=== PATIENT | female | born 2000 | race Caucasian/White ===

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

== ENCOUNTER 2023-09-21 20:13 | Emergency (ER) | payer SELFPAY ==
[2023-09-21 20:14] VITALS: BP 138/91; PULSE 121; RESP 20; TEMP 36.4; O2SAT 99; BMI 41.3
[2023-09-21 21:32] VITALS: BP 119/64; PULSE 102; RESP 16; TEMP 38.5; O2SAT 97
[2023-09-21 21:36] VITALS: O2SAT 97
[2023-09-21] MEDS: Acetaminophen 500 MG Tablet 1000 MG PO (21:50)
--- NOTE | 2023-09-21 21:58 | EDS_ITS ---
HPI History of Present Illness Chief Complaint: Dental PFSH PFSH Allergy/AdvReac Type Severity Reaction Status Date / Time No Known Allergies Allergy Verified 09/21/23 20:13 Social History (System 09/05/21 @ 14:49 by Aracelis Rico) Smoking Status: Never smoker EXAM Physical Exam Const Vital Signs: 09/21/23 20:14 09/21/23 21:32 09/21/23 21:36 Temperature 97.5 F L 101.3 F H Temperature Source Temporal Oral Pulse Rate 121 H 102 H Respiratory Rate 20 H 16 Respiratory Effort Normal Non-Labored Respiratory Depth Normal Respiratory Pattern Normal Blood Pressure 138/91 H 119/64 Blood Pressure Mean 106 82 Pulse Ox 99 97 Oxygen Delivery Method Room Air Room Air Room Air 09/21/23 22:32 Temperature 100.3 F H Temperature Source Oral Pulse Rate 100 Respiratory Rate 16 Respiratory Effort Respiratory Depth Respiratory Pattern Blood Pressure 129/77 H Blood Pressure Mean 94 Pulse Ox 98 Oxygen Delivery Method Room Air MDM MDM MDM Narrative Medical decision making narrative: HISTORY OF PRESENT ILLNESS: 23-year-old female presents with concern for dental pain, headache and shortness of breath. Patient denies sudden onset or thunderclap headache, denies maximal intensity within 1 minute, vomiting, neck pain, stiffness, changes in vision, fever, history malignancy, syncope, or seizures associated with headache. The patient denies recent surgery in the last 4 weeks or immobilization in the last 3 days, denies previous diagnosis of DVT or PE, hemoptysis, unilateral leg swelling or malignancy with treatment the last 6 months or palliative. No estrogen use noted. REVIEW OF SYSTEMS: Pertinent positives: Dental pain, headache, shortness of Pertinent negatives: Focal weakness, syncope, loss of vision PHYSICAL EXAM: Nursing triage notes reviewed, Vital signs reviewed Constitutional: please see mdm HENT: MMM Eyes: Pupils equal round and reactive to light, Extraocular muscles intact Neck: No stridor, no JVD, full neck ROM Lungs: Clear to auscultation, No wheezing or rales. No increased work of breathing, no conversational dyspnea, no accessory muscle use, no nasal flaring. No respiratory distress noted Heart: Regular rate and rhythm, No murmurs, No rubs and No gallops, 2+ distal pulses (radial, femoral, posterior tibial) in all extremities Abdomen: Soft, there is no tenderness, rigidity, rebound or guarding, no obvious peritoneal signs, no palpable pulsatile abdominal masses, no auscultated abdominal bruit : No CVAT Extremities: No edema Neuro: Alert and oriented x3, neuro exam at baseline, cranial nerves II through XII are intact. No pain with extraocular muscle movement. There is negative test of skew. 5 of 5 strength in upper and lower extremities in flexion extension. Intact sensation to light touch in upper and lower extremity dermatomes. No truncal or extremity ataxia. No dysdiadochokinesia. Normal gait. 2+ reflexes in upper and lower extremities. No meningeal signs. Negative Babinski. NIH of 0. Skin: No rash or lesions noted MEDICAL DECISION MAKING: Chief Complaint: Dental pain, shortness of breath, headache External records reviewed: No recent ED visits MDM Narrative: Patient was hemodynamically stable, initially febrile, nontoxic-appearing. Exam without focal neurologic deficits. No meningeal signs. I considered the following differential diagnosis: COVID, flu, RSV, pneumonia, ICH, cervical hemorrhage, meningitis ALL IMAGES (IF OBTAINED) HAVE BEEN PERSONALLY REVIEWED AND INTERPRETED BY MYSELF. COVID-positive Will likely etiology patient complaints COVID-19. She is low risk for severe disease or hospitalization no indication for Paxlovid at this time The patient and/or family, caregivers express understanding. The patient and/or family, caregivers agrees with the plan. Shared decision making: I will have a discussion with the patient and or visitors regarding risk/benefits of further testing or admission. They will be made aware of of the risk/benefits inherent in this decision they will be given the opportunity to voice understanding. Total critical care time today provided was at least 0 minutes. This excludes separately billable procedures. Critical care time (if documented) is secondary to the patient having high probability of clinically significant/life threatening deterioration in the patient's condition which required my urgent intervention. Impression: 1. Viral URI 2. Tachycardia 3. Fever Dispo: Discharge Discharge Plan Triage Chief Complaint: Dental Other Complaint: Headache Shortness of Breath ED Provider: Juan Alberto Arias Dx/Rx/DC Orders Instructions: How COVID-19 Spreads, Coronavirus Disease 2019 (COVID-19): Overview Stand Alone Forms: ED Work / School Excuse Primary Care Provider: Care Physician,No Primary Referrals: Dmitry Gary MD [Med Staff - [employer] Super[employer]] - Disposition Disposition: Home, Self Care Capacity Legal Digital Music Instructor Reflex Medical hold order details:: IF a medical hold is selected below, a suggested order for a MEDICAL HOLD will reflex upon signing the document. Next of kin: [place] law dictates a PRIORITY LIST for identifying legal decision-maker/legal next of kin in the following order (LNOK): 1st: The patient?s legal guardian, if any 2nd: The patient's spouse (if status is questionable, consult Risk Management) 3rd: The patient?s adult child(indy) (majority, if multiple children) 4th: The patient?s parents 5th: The patient?s adult siblings (majority, if multiple children siblings)
--- OUTSIDE RECORDS SUMMARY | 2023-09-21 22:23 | XMS RPT_ITS | CCD ---
Author Name Unknown Address [address] [place] [address] [id number] [place] [address] Organization [facility] Care Team Providers Care Progressive Assembler And Fitter Name Role Phone PHYSICIAN, NONE Primary Care Physician Unavailab Minesh Lai MD Primary Care Provider VANCE BUSCH Attending Unavailable MINESH KELLER Primary Care Unavailable Medications Current Medications Medication Drug Class(es) Dates Sig (Normalized) Sig (Original) amoxicillin 500 mg oral capsule (1 source) Penicillin-class Antibacterial Start: 07-25-2021 End: 08-01-2021 amoxicillin 500 mg oral capsule Dose : 500 mg = 1 cap(s), Oral, BID, X 7 day(s), # 14 cap(s), 0 Refill(s), 08/01/21 17:39:00 EST Start Date: 07/25/21 Stop Date: 08/01/21 Status: Ordered etonogestrel 68 mg drug implant (2 sources) Progestin Start: 05-18-2020 End: 05-18-2023 etonogestrel (NEXPLANON) subdermal implant 68 mg Indications: Insertion of implantable subdermal contraceptive 1 Each by SUBDERMAL route as directed. 1 Each 0 05/18/2020 05/18/2023 Active Completed/Discontinued Medications Medication Drug Class(es) Dates Sig (Normalized) Sig (Original) famotidine 40 mg oral tablet (2 sources) Histamine-2 Receptor Antagonist Start: 03-27-2021 End: 04-10-2021 Pepcid 40 mg oral tablet Dose : 40 mg = 1 tab(s), Oral, BID, # 28 tab(s), 0 Refill(s) Start Date: 03/27/21 Stop Date: 04/10/21 Status: Ordered naproxen 500 mg oral tablet (1 source) Nonsteroidal Anti-inflammatory Drug Start: 03-26-2021 take 1 tablet by mouth every twelve hours as needed naproxen (NAPROSYN) 500 mg tablet Take 1 tablet by mouth twice daily as needed (for pain/inflammation ). Take with food. 14 tablet 0 03/26/2021 Active Problems Active Problems Problem Classification Problem Date Documented Da te Episodic/Chronic Anxiety disorders (2 sources) Mixed anxiety and depressive disorder 09-25-2019 Chronic Calculus of urinary tract (2 sources) History of calculus of kidney 09-25-2019 Episodic Miscellaneous mental health disorders (1 source) Chronic insomnia; Translations: [Psychophysiologi c insomnia] Onset: 05-02-2021 05-02-2021 Chronic Mood disorders (1 source) Recurrent major depressive episodes, mild ; Translations: [Major depressive disorder, recurrent, mild] Onset: 05-02-2021 05-02-2021 Chronic Other gastrointestinal disorders (2 sources) Irritable bowel syndrome 09-25-2019 Chronic Other nutritional; endocrine; and metabolic disorders (1 source) Obesity; Translations: [Other obesity due to excess calories] Onset: 05-02-2021 05-02-2021 Chronic Other upper respiratory infections (1 source) Acute pharyngitis; Translations: [Acute pharyngitis, unspecified] Onset: 07-25-2021 Episodic Viral infection (1 source) Viral disease; Translations: [Other viral agents as the cause of diseases classified elsewhere] Onset: 03-14-2022 Episodic Past or Other Problems Problem Classification Problem Date Documented Da te Episodic/Chronic Other non-traumatic joint disorders (1 source) Hip pain; Translations: [Pain in right hip] Onset: 05-02-2021 05-02-2021 Episodic Unclassified (1 source) Exposure to 2019 novel coronavirus; Translations: [Contact with and (suspected) exposure to COVID19] Onset: 07-25-2021 Results Test Name Value Interpretation Reference Range Facil ity Vital Signs Date Time Vital Sign Value Performing Clinician Faci delvis 03-14-2022 14:29-0400 Body temperature 98.42 [degF] GASTON GILMAN MD [facility] 03-14-2022 14:29-0400 Diastolic blood pressure 70 mm[Hg] GASTON LYREN-SONDLES MD [facility] 03-14-2022 14:29-0400 Heart rate 104 /min GASTON GILMAN MD [facility] 03-14-2022 14:29-0400 Respiratory rate 16 /min GASTON GILMAN MD [facility] 03-14-2022 14:29-0400 Systolic blood pressure 117 mm[Hg] GASTON GILMAN MD [facility] 07-25-2021 17:29-0500 Body temperature 98.96 [degF] DR MAURISIO BECERRA MD [facility] 07-25-2021 17:29-0500 Diastolic blood pressure 88 mm[Hg] DR MAURISIO BECERRA MD [facility] 07-25-2021 17:29-0500 Heart rate 89 /min DR MAURISIO BECERRA MD [facility] 07-25-2021 17:29-0500 Respiratory rate 16 /min DR MAURISIO BECERRA MD [facility] 07-25-2021 17:29-0500 Systolic blood pressure 147 mm[Hg] DR MAURISIO BECERRA MD [facility] Encounters Encounter Date Encounter Type Care Provider Facility Start: 10-06-2022 End: 10-06-2022 [facility] Facility:[facility] Start: 03-14-2022 End: 03-14-2022 Emergency department patient visit GASTON GILMAN MD [facility] Start: 01-11-2022 ambulatory Vance jackson PA-C Work Phone: [facility] Procedures Date Procedure Procedure Detail Performing Clinician Start: 12-20-2020 Adult depression screening assessment Vance Busch PA-C Work Phone: None (qualifier value) DR CARLOS BECERRA MD Plan of Treatment Date Care Activity Detail Author Start: 09-24-2026 Urine microalbumin profile DTA P,TDAP,TD (7 - Td or Tdap) [facility] Start: 05-08-2022 Influenza vaccination INFLUENZA (Sea son Ended) [facility] Start: 12-20-2021 Adult depression scr eening assessment DEPRESSION SCREENING [facility] Start: 02-11-2020 CHLAMYDIA SCREENING (18-24) CHLAMYDIA SCREENING (18-24) [facility] Start: 02-11-2020 GC (GONORRHEA) SCREE JIM (18-24) GC (GONORRHEA) SCREENING (18-24) [facility] Start: 02-11-2020 HEPATITIS C SCREENING HEPATITIS C SC REENING [facility] Start: 02-11-2016 PEDS TO ADULT TRANSI TION ANNUAL ASSESSMENT PEDS TO ADULT TRANSITION ANNUAL ASSESSMENT [facility] Start: 2014 PEDS TO ADULT TRANSI TION INITIAL DISCUSSION PEDS TO ADULT TRANSITION INITIAL DISCUSSION [facility] Start: 02-11-2012 MENINGOCOCCAL B: Con steel melter based on risk (1 of 2 - Risk Bexsero 2-dose series) MENINGOCOCCAL B: Consider based on risk (1 of 2 - Risk Bexsero 2-dose series) [facility] Start: 2007 COVID-19 VACCINE (1) COVID-19 VACCIN E (1) [facility] Immunizations Immunization Date Immunization Notes Care Provider Laz wall 05-02-2021 Human Papillomavirus 9-valent vaccine Vance Busch PA-C Work Phone: [facility] 12-31-2018 Human Papillomavirus 9-valent vaccine Vance Busch PA-C Work Phone: [facility] Work Phone: 12-31-[address] Quad[address] DR MAURISIO BECERRA MD [facility] 06-08-2018 influenza virus vacc ine, unspecified formulation DR MAURISIO BECERRA MD [facility] 04-08-2018 Human Papillomavirus 9-valent vaccine Vance Busch PA-C Work Phone: [facility] 04-08-[address] MAURISIO BECERRA MD [facility] 04-08-2018 meningococcal polysaccharide (groups A, C, Y and W-135) diphtheria toxoid conjugate vaccine (MCV4P) DR MAURISIO BECERRA MD [facility] 04-08-[address] Carly BECERRA MD [facility] 09-24-2016 tetanus toxoid, redu juliann diphtheria toxoid, and acellular pertussis vaccine, adsorbed DR MAURISIO BECERRA MD [facility] 07-10-[address] MAURISIO BECERRA MD [facility] 03-09-[address] MAURISIO BECERRA MD [facility] 01-02-[address] MAURISIO BECERRA MD [facility] 01-02-2014 tetanus toxoid, redu juliann diphtheria toxoid, and acellular pertussis vaccine, adsorbed DR MAURISIO BECERRA MD [facility] 02-25-2007 diphtheria, tetanus toxoids and acellular pertussis vaccine Vance Busch PA-C Work Phone: [facility] Work Phone: 02-25-2007 measles, mumps and rubella virus vaccine Vance Busch PA-C Work Phone: [facility] Work Phone: 02-25-2007 poliovirus vaccine, inactivated Vance Busch PA-C Work Phone: [facility] Work Phone: 05-16-2003 diphtheria, tetanus toxoids and acellular pertussis vaccine DR MAURISIO BECERRA MD [facility] 05-16-2003 haemophilus influenz ae type b vaccine, HbOC conjugate Vance Busch PA-C Work Phone: [facility] Work Phone: 05-16-2003 pneumococcal conjuga te vaccine, 7 valent Vance Busch PA-C Work Phone: [facility] Work Phone: 02-13-2003 measles, mumps and rubella virus vaccine Vance Busch PA-C Work Phone: [facility] Work Phone: 02-13-2003 measles/mumps/rubell a virus vaccine DR MAURISIO BECERRA MD [facility] 02-13-[address] Carly BECERRA MD [facility] 2002 hepatitis B pediatri c vaccine DR MAURISIO BECERRA MD [facility] 2002 hepatitis B vaccine, pediatric or pediatric/adolescent dosage Vance LORENZANA-C Work Phone: [facility] Work Phone: 2002 diphtheria, tetanus toxoids and acellular pertussis vaccine DR MAURISIO BECERRA MD [facility] 2002 haemophilus influenz ae type b vaccine, HbOC conjugate Vance Busch PA-C Work Phone: [facility] Work Phone: 2002 pneumococcal conjuga te vaccine, 7 valent Vance Busch PA-C Work Phone: [facility] Work Phone: [address], [address] MAURISIO BECERRA MD [facility] 2002 diphtheria, tetanus toxoids and acellular pertussis vaccine DR MAURISIO BECERRA MD [facility] 2002 haemophilus influenz ae type b vaccine, HbOC conjugate Vance Busch PA-C Work Phone: [facility] Work Phone: 2002 pneumococcal conjuga te vaccine, 7 valent Vance Busch PA-C Work Phone: [facility] Work Phone: [address], [address] MAURISIO BECERRA MD [facility] 2002 diphtheria, tetanus toxoids and acellular pertussis vaccine DR MAURISIO BECERRA MD [facility] 2002 haemophilus influenz ae type b vaccine, HbOC conjugate Vance Busch PA-C Work Phone: [facility] Work Phone: 2002 pneumococcal conjuga te vaccine, 7 valent Vance Busch PA-C Work Phone: [facility] Work Phone: [address], [address] MAURISIO BECERRA MD [facility] 2002 hepatitis B pediatri c vaccine DR MAURISIO BECERRA MD [facility] 2002 hepatitis B vaccine, pediatric or pediatric/adolescent dosage Vance Busch PA-C Work Phone: [facility] Work Phone: 2002 hepatitis B vaccine, pediatric or pediatric/adolescent dosage Vance Busch PA-C Work Phone: [facility] Work Phone: Payers Date Payer Category Payer Medicaid [facility] MEDICAID [facility] [employer] MEDICAID [id number] 2016-Present [phone] [address] [place] [address] Medicaid [id number] 2016 Medicaid [id number] Social History Date Type Detail Facility Start: 03-16-2019 Ex-smoker (finding) [facility] Sex Assigned At [facility] Start: 12-31-2018 Tobacco smoking stat us NHIS Never smoked tobacco [facility] Start: 12-31-2018 Tobacco use and exposure Smoke less tobacco non-user [facility] Start: 05-02-2021 Alcohol intake Current non-dr crochet beader of alcohol (finding) [facility] Start: 12-21-2020 History SDOH Alcohol Frequency 1 [facility] Start: 12-21-2020 History SDOH Alcohol Std Drinks 98 [facility] Start: 12-21-2020 History SDOH Social Connections Phone 5 [facility] Start: 12-21-2020 History SDOH Social Connections Get Together 3 [facility] Start: 12-21-2020 History SDOH Social Connections Membership 2 [facility] Start: 12-21-2020 History SDOH Social Connections Living 7 [facility] Start: 12-21-2020 History SDOH Physica l Activity DPW 0 [facility] Start: 12-20-2020 Education 12 [facility] Start: 2002 Sex Assigned At Not on file C [facility] Functional Status Date Assessment Result Facility 03-14-2022 Functional Status Standard Safet y ID band on, Call device within reach, Bed in low position, Wheels locked, Upper/Half-Length side-rails up, Bedside Cart Locked, Safety level maintained [facility] Mental Status Date Assessment Result Facility 03-14-2022 Mental Status Oriented x 4 [facility] Progress note 10-06-2022 Note Date & Type Note Facility 10-06-2022 Note HNO ID: [id number] Author: Vance Busch PA-C Service: ? Author Type: Physician Vault Service Mechanic Type: Progress Notes Filed: 10/06/2022 12:59 PM Note Text: Chief Complaint Patient presents with: Mass: In upper buttock crease X~2 wks Immunizations: Flu vaccination HPI Sunitha Donnelly is a 22 year old female who presents here today for Above Complaints.. Patient states she has had vaginal/buttock lesions that come and go over the past years. Mildly tender. They get bigger and then sometimes hard. Will open and she notices pus and blood. Current spot is about 2 weeks and seems to be improved. No active drainage. Past medical history, appointments, medications, allergies reviewed. Previous Medical History PAST MEDICAL HISTORY Diagnosis Date depression PMH - PAST MEDICAL HISTORY OF 02/25/2007 normal color vision Previous Surgical History PAST SURGICAL HISTORY Procedure Laterality Date NONE Family History FAMILY HISTORY Problem Relation Age of Onset Diabetes Mother Breast Cancer Mother brain cancer Mental illness Father Diabetes Maternal Grandmother Heart Maternal Grandfather from stroke Stroke Maternal Grandfather Cancer Paternal Grandmother ovarian cancer Heart Paternal Grandfather Diabetes Paternal Grandfather Cancer Other MGGM, ovarian Cancer Other MGGF, lung Patient Allergies ALLERGIES No Known Allergies Current Medications Current Outpatient Medications on File Prior to Visit Medication Sig etonogestrel (NEXPLANON) subdermal implant 68 mg 68 mg by SUBDERMAL route. traZODone (DESYREL) 50 mg tablet Take 50 mg by mouth daily at bedtime. (Patient not taking: Reported on 10/06/2022) naproxen (NAPROSYN) 500 mg tablet Take 1 tablet by mouth twice daily as needed (for pain/inflammation). Take with food. (Patient not taking: Reported on 10/06/2022) etonogestrel (NEXPLANON) subdermal implant 68 mg 1 Each by SUBDERMAL route as directed. (Patient not taking: Reported on 10/06/2022) No current facility-administered medications on file prior to visit. Social History Social History Tobacco Use Smoking status: Never Smokeless tobacco: Never Vaping Use Vaping Use: Never used Substance Use Topics Alcohol use: No Drug use: No Review of Symptoms REVIEW OF SYSTEMS See hpi EXAM: BP 100/80 (BP Site: Left Arm, BP Position: Sitting, BP Cuff Size: Large Adult) Pulse 81 Resp 16 Wt 109.6 kg (241 lb 9.6 oz) LMP 10/02/2022 (Approximate) SpO2 98% BMI 42.28 kg/m? General Appearance: Well appearing, alert, in no acute distress, well-hydrated, well nourished.. Skin: healing abscess noted. Mildly tender but no active erythema. Noted scaring from other prior cysts. . Health Maintenance List COVID-19 VACCINE(1) Never done MENINGOCOCCAL B: Consider based on risk(1 of 2 - Risk Bexsero 2-dose series) Never done GC (GONORRHEA) SCREENING (18-24) due on 02/11/2020 HEPATITIS C SCREENING Never done CHLAMYDIA SCREENING (18-24) due on 02/11/2020 INFLUENZA(1) due on 05/08/2022 DTAP,TDAP,TD(7 - Td or Tdap) due on 09/24/2026 HEPATITIS B Completed HPV VACCINE Completed HIV SCREENING Completed Data reviewed ASSESSMENT/PLAN: 1. Abscess - ICD9: 682.9, ICD10: L02.91 (primary diagnosis) Will check culture however no active draining so results may be normal. Will tx with atb but patient to return during active lesion so we can try another culture. Advised good hygiene Follow up prn. - WOUND CULTURE AND GRAM STAIN Vance Busch PA-C [facility] Discharge instructions 03-14-2022 Note Date & Type Note Facility 03-14-2022 Hospital Discharg e instructions Patient Education 03/14/2022 14:30:46 Viral Syndrome (Adult) Viral Syndrome (Adult) A viral illness may cause a number of symptoms such as fever. Other symptoms depend on the part of the body that the virus affects. If it settles in your nose, throat, and lungs, it may cause cough, sore throat, congestion, runny nose, headache, earache and other ear symptoms, or shortness of breath. If it settles in your stomach and intestinal tract, it may cause nausea, vomiting, cramping, and diarrhea. Sometimes it causes generalized symptoms like aching all over, feeling tired, loss of energy, or loss of appetite. A viral illness usually lasts anywhere from several days to several weeks, but sometimes it lasts longer. In some cases, a more serious infection can look like a viral syndrome in the first few days of the illness. You may need another exam and additional tests to know the difference. Watch for the warning signs listed below for when to seek medical advice. Home care Follow these guidelines for taking care of yourself at home: If symptoms are severe, rest at home for the first 2 to 3 days. Stay away from cigarette smoke - both your smoke and the smoke from others. You may use ikpe-ado-agqyevg acetaminophen or ibuprofen for fever, muscle aching, and headache, unless another medicine was prescribed for this. If you have chronic liver or kidney disease or ever had a stomach ulcer or gastrointestinal bleeding, talk with your healthcare provider before using these medicines. No one who is younger than 18 and ill with a fever should take aspirin. It may cause severe disease or . Your appetite may be poor, so a light diet is fine. Avoid dehydration by drinking 8 to 12, 8-ounce glasses of fluids each day. This may include water; orange juice; lemonade; apple, grape, and cranberry juice; clear fruit drinks; electrolyte replacement and sports drinks; and decaffeinated teas and coffee. If you have been diagnosed with a kidney disease, ask your healthcare provider how much and what types of fluids you should drink to prevent dehydration. If you have kidney disease, drinking too much fluid can cause it build up in the your body and be dangerous to your health. Ilog-yet-djywdek remedies won't shorten the length of the illness but may be helpful for symptoms such as cough, sore throat, nasal and sinus congestion, or diarrhea. Don't use decongestants if you have high blood pressure. Follow-up care Follow up with your healthcare provider if you do not improve over the next week. Call 911 Call 911 if any of the following occur: Convulsion Feeling weak, dizzy, or like you are going to faint Chest pain, or more than mild shortness of breath When to seek medical advice Call your healthcare provider right away if any of these occur: Cough with lots of colored sputum (mucus) or blood in your sputum Chest pain, shortness of breath, wheezing, or trouble breathing Severe headache; face, neck, or ear pain Severe, constant pain in the lower right side of your belly (abdominal) Continued vomiting (can t keep liquids down) Frequent diarrhea (more than 5 times a day); blood (red or black color) or mucus in diarrhea Feeling weak, dizzy, or like you are going to faint Extreme thirst Fever of 100.4 F (38 C) or higher, or as directed by your healthcare provider [phone] [employer]. [address] [place] [address]. All rights reserved. This information is not intended as a substitute for professional medical care. Always follow your healthcare professional's instructions. Follow Up Care 03/14/2022 14:26:23 With:Follow up with primary care provider Address:Unknown When:2-4 days [facility] SARS-CoV-2 (COVID-19) RNA CESILIA+probe Ql (Nph) 03-14-2022 Note Date & Type Note Facility 03-14-2022 SARS-CoV-2 (COVID -19) RNA CESILIA+probe Ql (Nph) Positive *ABN* (03/14/22 2:51 PM) AO Auto Urine SS Emergency department Discharge summary 03-14-2022 Note Date & Type Note Facility 03-14-2022 Emergency department Discharge summary Discharge Instructions Thank you for allowing [facility] to assist you with your healthcare needs. The following is important discharge information regarding your hospital visit. Diagnosis from Today's Visit Viral syndrome What to Do Next Instructions from Your Care Team Discharge Return to Work, School, or Sports (Return to Work, School, or Sports) - Ordered -- May return to: work, please excuse on 03/14/22, 03/14/22 14:30:00 EDT Post Acute Orders No qualifying data available. You Need to Schedule the Following Appointments Follow Up with Follow up with primary care provider When Within 2-4 days Allergies NKA Medications Please ask your primary doctor or pharmacist before taking any other medication not listed, including over the counter drugs, herbal medications, vitamins and or supplements as they may interact with your home medications. What How Much When Instructions Last Dose Unchanged famotidine (Pepcid 40 mg oral tablet) 1 tab(s) by mouth Two (2) times a day Duration: 14 Days Unchanged traZODone (traZODone 50 mg oral tablet) 1 tab(s) by mouth Daily at bedtime Please take this list to your next doctor s visit. Bring all medications you take, including over the counter medications, herbals and other supplements with you to your doctor s visit. Patients and families are reminded to discard old lists and to update any records with all medication providers or retail pharmacies. Education Materials Viral Syndrome (Adult) A viral illness may cause a number of symptoms such as fever. Other symptoms depend on the part of the body that the virus affects. If it settles in your nose, throat, and lungs, it may cause cough, sore throat, congestion, runny nose, headache, earache and other ear symptoms, or shortness of breath. If it settles in your stomach and intestinal tract, it may cause nausea, vomiting, cramping, and diarrhea. Sometimes it causes generalized symptoms like aching all over, feeling tired, loss of energy, or loss of appetite. A viral illness usually lasts anywhere from several days to several weeks, but sometimes it lasts longer. In some cases, a more serious infection can look like a viral syndrome in the first few days of the illness. You may need another exam and additional tests to know the difference. Watch for the warning signs listed below for when to seek medical advice. Home care Follow these guidelines for taking care of yourself at home: If symptoms are severe, rest at home for the first 2 to 3 days. Stay away from cigarette smoke - both your smoke and the smoke from others. You may use pxsr-iiu-zvkywsb acetaminophen or ibuprofen for fever, muscle aching, and headache, unless another medicine was prescribed for this. If you have chronic liver or kidney disease or ever had a stomach ulcer or gastrointestinal bleeding, talk with your healthcare provider before using these medicines. No one who is younger than 18 and ill with a fever should take aspirin. It may cause severe disease or . Your appetite may be poor, so a light diet is fine. Avoid dehydration by drinking 8 to 12, 8-ounce glasses of fluids each day. This may include water; orange juice; lemonade; apple, grape, and cranberry juice; clear fruit drinks; electrolyte replacement and sports drinks; and decaffeinated teas and coffee. If you have been diagnosed with a kidney disease, ask your healthcare provider how much and what types of fluids you should drink to prevent dehydration. If you have kidney disease, drinking too much fluid can cause it build up in the your body and be dangerous to your health. Ozzu-czx-zazyscw remedies won't shorten the length of the illness but may be helpful for symptoms such as cough, sore throat, nasal and sinus congestion, or diarrhea. Don't use decongestants if you have high blood pressure. Follow-up care Follow up with your healthcare provider if you do not improve over the next week. Call 911 Call 911 if any of the following occur: Convulsion Feeling weak, dizzy, or like you are going to faint Chest pain, or more than mild shortness of breath When to seek medical advice Call your healthcare provider right away if any of these occur: Cough with lots of colored sputum (mucus) or blood in your sputum Chest pain, shortness of breath, wheezing, or trouble breathing Severe headache; face, neck, or ear pain Severe, constant pain in the lower right side of your belly (abdominal) Continued vomiting (can t keep liquids down) Frequent diarrhea (more than 5 times a day); blood (red or black color) or mucus in diarrhea Feeling weak, dizzy, or like you are going to faint Extreme thirst Fever of 100.4 F (38 C) or higher, or as directed by your healthcare provider [id number] [employer]. [address] [place] [address]. All rights reserved. This information is not intended as a substitute for professional medical care. Always follow your healthcare professional's instructions. Additional Information VACCINATE! IT SAVES LIVES! Members of the community who have not yet received the COVID-19 vaccine and would like to receive it can visit one of [facility] vaccine clinics. There are many vaccine clinic locations within the [facility]. For locations and available times, please visit [email or web address] rg. It is important to note that some COVID mobile vaccine clinics are held outdoors and may be canceled in rainy or stormy conditions. To learn more about pediatric vaccinations (ages 5-11), we invite you to visit the [facility] webpage. [email or web address]://[email or web address])[email or web address]/pa [email or web address]-[email or web address]-[email or web address] [email or web address]-Buxktocaq.html To learn more about the COVID-19 vaccine, we invite you to visit the [facility] website for a list of frequently asked questions. [email or web address]://[employer]/assets/[email or web address] [email or web address]-[email or web address]/[email or web address]-Upw quently_[email or web address].pdf [facility] Patient Portal Access Instructions: Stay connected with your healthcare team and access your personal medical information anytime with the [facility] Patient Portal. If you would like a full copy of your medical records please contact the [facility] Medical Records Department Thursday through Thursday between 8a.m. and 4:30p.m. Please follow the directions below to access the portal: 1.Access the email account you provided upon registration to the [facility].2.Look for an invitation email from [facility].3.Open the email and access the invitation link: Accept Invitation to [facility].Fill in the required vazquez to create your account. Sign into www.[employer] with your username and password that you created in the above steps to stay up to date. You can then view a summary of results, a summary of your visits, and the ability to download your summaries to your computer or send the information securely to a physician. Remember that your healthcare information is confidential, so carefully consider who you will allow to register on the [facility] Patient Portal for access to your information. You can also access the [facility] Patient Portal on the Good[employer]Co sandra. Simply click on Health Records under Health Data and then click on the [employer] logo. HOW TO SAFELY DISPOSE OF PRESCRIPTION MEDICATIONS Please use one of the following methods to safely dispose of your unused medications. 1.Use a drug disposal kit: the drug disposal pouch allows you to safely discard your old and unused drugs. Ask your nurse to give you one when you are discharged.2.Visit a local take-back location: Many local pharmacies and police departments have programs that collect old and unwanted prescription drugs. Call your local pharmacy or go to http://[employer].Referral.IM/4W9Kq2s to find one close to you.3.Make use of household items: Use cat litter or old coffee grounds to dispose medications if other options are not available. Mix your drugs with these household products, seal them in an airtight container and throw it into the garbage. Call [facility]: [phone] to be sure your drugs can be disposed of in this way. Some medicines may require a different approach.4.Never flush your medications down the toilet. IF YOU HAVE BEEN PRESCRIBED AN OPIOIDS FOR PAIN If you have been prescribed an opioid (such as hydrocodone, oxycodone or morphine), it is critical to understand the possible side effects and risks of opioid pain medications. Even when taken as directed, opioids can have several side effects including: Tolerance, meaning you might need to take more of a medication for the same pain relief. Nausea, vomiting and/or constipation. Sleepiness, dizziness, dry mouth, confusion, depression or itching. Physical dependence, meaning you have withdrawal symptoms when a medication is stopped ? this can develop within a few days. KNOW YOUR RESPONSIBILITIES It is important to know exactly how much and how often to take the opioid pain medications you are prescribed. Never take opioids in higher amounts or more often than prescribed. Do not combine opioids with alcohol or other drugs that cause drowsiness, such as benzodiazepines, also known as benzos, including diazepam and alprazolam, muscle relaxants or sleep aids. Never sell or share prescription opioids. This is illegal. Store opioids in a secure place and out of reach of others (including children, family, friends and visitors). The last page(s) of this document has been signed and retained as a CHART COPY Signatures Patient Education Materials Viral Syndrome (Adult) Medication Leaflets My discharge plan and instructions have been reviewed and explained to me and I,SUNITHA DONNELLY understand my current condition and have read and understand these discharge instructions. I have received a written copy of the plan/instructions. If I have questions, I am aware that I should contact my doctor. Patient/Strategy Specialist Signature: Date/Time: Relationship to Patient: ____ Witness Name/Signature: Date/Time: [facility] Note 01-13-2022 Telephone Encounter - Vance Busch PA-C - 01/13/2022 9:23 AM EDTTelephone Encounter - Evy Macias LPN - 01/13/2022 7:39 AM EDT Note Date & Type Note Facility 01-13-2022 Miscellaneous Notes Agree with ER advised to to be seen in ER and not to send urgent messages via My Chart. Evy Macias LPN documented in this encounter [facility] Discharge instructions 07-25-2021 Note Date & Type Note Facility 07-25-2021 Hospital Discharg e instructions Patient Education 07/25/2021 17:39:00 COVID-19 Prevent the Spread of COVID-19 If You Are Sick (01/24/2020) (Custom) Prevent the Spread of COVID-19 If You Are Sick Accessible version: https://www.cdc.gov/coronaviru s/2019-ncov/jk-fli-ugl-sick/st jhh-icvl-oqaz.html If you are sick with COVID-19 or think you might have COVID-19, follow the steps below to help protect other people in your home and community. Stay home except to get medical care. Stay home. Most people with COVID-19 have mild illness and are able to recover at home without medical care. Do not leave your home, except to get medical care. Do not visit public areas. Take care of yourself. Get rest and stay hydrated. Get medical care when needed. Call your doctor before you go to their office for care. But, if you have trouble breathing or other concerning symptoms, call 911 for immediate help. Avoid public transportation, ride-sharing, or taxis. Separate yourself from other people and pets in your home. As much as possible, stay in a specific room and away from other people and pets in your home. Also, you should use a separate bathroom, if available. If you need to be around other people or animals in or outside of the home, wear a cloth face covering. See COVID-19 and Animals if you have questions about pets: https://www.cdc.gov/coronaviru s/2019ncov/faq.html#MBJAT77txx mals Monitor your symptoms. Common symptoms of COVID-19 include fever and cough. Trouble breathing is a more serious symptom that means you should get medical attention. Follow care instructions from your healthcare provider and local health department. Your local health authorities will give instructions on checking your symptoms and reporting information. If you develop emergency warning signs for COVID-19 get medical attention immediately. Emergency warning signs include*: Trouble breathing Persistent pain or pressure in the chest New confusion or not able to be woken Bluish lips or face *This list is not all inclusive. Please consult your medical provider for any other symptoms that are severe or concerning to you. Call 911 if you have a medical emergency. If you have a medical emergency and need to call 911, notify the laser beam color scanner operator that you have or think you might have, COVID-19. If possible, put on a facemask before medical help arrives Call ahead before visiting your doctor. Call ahead. Many medical visits for routine care are being postponed or done by phone or telemedicine. If you have a medical appointment that cannot be postponed, call your doctor s office. This will help the office protect themselves and other patients. If you are sick, wear a cloth covering over your nose and mouth. You should wear a cloth face covering over your nose and mouth if you must be around other people or animals, including pets (even at home). You don t need to wear the cloth face covering if you are alone. If you can t put on a cloth face covering (because of trouble breathing for example), cover your coughs and sneezes in some other way. Try to stay at least 6 feet away from other people. This will help protect the people around you. Note: During the COVID-19 pandemic, medical grade facemasks are reserved for healthcare workers and some first responders. You may need to make a cloth face covering using a scarf or bandana. Cover your coughs and sneezes. Cover your mouth and nose with a tissue when you cough or sneeze. Throw used tissues in a lined trash can. Immediately wash your hands with soap and water for at least 20 seconds. If soap and water are not available, clean your hands with an alcohol-based hand cheerleading coach that contains at least 60% alcohol. Clean your hands often. Wash your hands often with soap and water for at least 20 seconds. This is especially important after blowing your nose, coughing, or sneezing; going to the bathroom; and before eating or preparing food. Use hand cheerleading coach if soap and water are not available. Use an alcohol-based hand cheerleading coach with at least 60% alcohol, covering all surfaces of your hands and rubbing them together until they feel dry. Soap and water are the best option, especially if your hands are visibly dirty. \ Avoid touching your eyes, nose, and mouth with unwashed hands. Avoid sharing personal household items. Do not share dishes, drinking glasses, cups, eating utensils, towels, or bedding with other people in your home. Wash these items thoroughly after using them with soap and water or put them in the cable supervisor. Clean all high-touch surfaces everyday. Clean and disinfect high-touch surfaces in your sick room and bathroom. Let someone else clean and disinfect surfaces in common areas, but not your bedroom and bathroom. If a caregiver or other person needs to clean and disinfect a sick person s bedroom or bathroom, they should do so on an as-needed basis. The caregiver/other person should wear a mask and wait as long as possible after the sick person has used the bathroom High-touch surfaces include phones, remote controls, counters, tabletops, doorknobs, bathroom fixtures, toilets, keyboards, tablets, and bedside tables. Clean and disinfect areas that may have blood, stool, or body fluids on them. Use household location and measurement technician and disinfectants. Clean the area or item with soap and water or another detergent if it is dirty. Then use a household disinfectant. Be sure to follow the instructions on the label to ensure safe and effective use of the product. Many products recommend keeping the surface wet for several minutes to ensure germs are killed. Many also recommend precautions such as wearing gloves and making sure you have good ventilation during use of the product. Most EPA-registered household disinfectants should be effective. How to discontinue home isolation. People with COVID-19 who have stayed home (home isolated) can stop home isolation under the following conditions: If you will not have a test to determine if you are still contagious, you can leave home after these three things have happened: You have had no fever for at least 72 hours (that is three full days of no fever without the use of medicine that reduces fevers) AND other symptoms have improved (for example, when your cough or shortness of breath has improved) AND at least 10 days have passed since your symptoms first appeared. If you will be tested to determine if you are still contagious, you can leave home after these three things have happened: You no longer have a fever (without the use of medicine that reduces fevers) AND other symptoms have improved (for example, when your cough or shortness of breath has improved) AND you received two negative tests in a row, 24 hours apart. Your doctor will follow CDC guidelines. In all cases, follow the guidance of your healthcare provider and local health department. The decision to stop home isolation should be made in consultation with your healthcare provider and state and local health departments. Local decisions depend on local circumstances. cdc.gov/coronavirus 07/25/2021 17:39:00 Pharyngitis, Report Pending Pharyngitis (Sore Throat), Report Pending Pharyngitis (sore throat) is often due to a virus. It can also be caused by streptococcus (strep), bacteria. This is often called strep throat. Both viral and strep infections can cause throat pain that is worse when swallowing, aching all over, headache, and fever. Both types of infections are contagious. They may be spread by coughing, kissing, or touching others after touching your mouth or nose. A test has been done to find out if you or your child have strep throat. Call this facility or your healthcare provider if you were not given your test results. If the test is positive for strep infection, you will need to take antibiotic medicines. A prescription can be called into your pharmacy at that time. If the test is negative, you probably have a viral pharyngitis. This does not need to be treated with antibiotics. Until you receive the results of the strep test, you should stay home from work. If your child is being tested, he or she should stay home from school. Home care Rest at home. Drink plenty of fluids so you won't get dehydrated. If the test is positive for strep, you or your child should not go to work or school for the first 2 days of taking the antibiotics. After this time, you or your child will not be contagious. You or your child can then return to work or school when feeling better. Use the antibiotic medicine for the full 10 days. Do not stop the medicine even if you or your child feel better. This is very important to make sure the infection is fully treated. It is also important to prevent medicine-resistant germs from growing. If you or your child were given an antibiotic shot, no more antibiotics are needed. Use throat lozenges or numbing throat sprays to help reduce pain. Gargling with warm salt water will also help reduce throat pain. Dissolve 1/2 teaspoon of salt in 1 glass of warm water. Children can sip on juice or a popsicle. Children 5 years and older can also suck on a lollipop or hard candy. Don't eat salty or spicy foods or give them to your child. These can irritate the throat. Other medicine for a child: You can give your child acetaminophen for fever, fussiness, or discomfort. In babies over 6 months of age, you may use ibuprofen instead of acetaminophen. If your child has chronic liver or kidney disease or ever had a stomach ulcer or GI bleeding, talk with your child s healthcare provider before giving these medicines. Aspirin should never be used by any child under 18 years of age who has a fever. It may cause severe liver damage. Other medicine for an adult: You may use acetaminophen or ibuprofen to control pain or fever, unless another medicine was prescribed for this. If you have chronic liver or kidney disease or ever had a stomach ulcer or GI bleeding, talk with your healthcare provider before using these medicines. Follow-up care Follow up with your healthcare provider or our staff if you or your child don't get better over the next week. When to seek medical advice Call your healthcare provider right away if any of these occur: Fever as directed by your healthcare provider. For children, seek care if: oYour child is of any age and has repeated fevers above 104 F (40 C). oYour child is younger than 2 years of age and has a fever of 100.4 F (38 C) for more than 1 day. oYour child is 2 years old or older and has a fever of 100.4 F (38 C) for more than 3 days. New or worsening ear pain, sinus pain, or headache Painful lumps in the back of neck Stiff neck Lymph nodes are getting larger Can t swallow liquids, a lot of drooling, or can t open mouth wide due to throat pain Signs of dehydration, such as very dark urine or no urine, sunken eyes, dizziness Trouble breathing or noisy breathing Muffled voice New rash Other symptoms getting worse Prevention Here are steps you can take to help prevent an infection: Keep good hand washing habits. Don t have close contact with people who have sore throats, colds, or other upper respiratory infections. Don t smoke, and stay away from secondhand smoke. Stay up to date with of your vaccines. [id number] [employer]. [address] [place] [address], [place] [address]. All rights reserved. This information is not intended as a substitute for professional medical care. Always follow your healthcare professional's instructions. Follow Up Care 07/25/2021 17:10:11 With:MAURISIO CALERO Address: [address] [place] [address] Physicians [place], [place] [id number]- Business (1) When:2-4 days Comments:Do not start antibiotics until notified of your strep status. If it is negative, do not start antibiotics, if is positive you may start antibiotics. Quarntine at home till Covid results are available. Follow-up closely with your doctor. [facility] History of Past illness Narrative 12-07-2016 Note Date & Type Note Facility documented as of this encounter (statuses as of 01/13/2022) [facility] Evaluation + Plan note Note Date & Type Note Facility Evaluation + Plan note No data available for this section [facility] Summary Purpose Family History No Family History Records FoundNo Family History Records FoundNo Family History Records Found Advance Directives No Advanced Directives Records FoundNo Advanced Directives Records FoundNo Advanced Directives Records Found Additional Source Comments INFORMATION SOURCE (unrecogn ized section and content) DATE CREATED AUTHOR AUTHOR'S ORGANIZ ATION 03/30/2022 [facility] ([place]) DATE CREATED AUTHOR AUTHOR'S ORGANIZ ATION 10/10/2022 [facility] Source Comments (unrecognize d section and content) In the event this informatio n is protected by the Federal Confidentiality of Alcohol and Drug Abuse Patient Records regulations: The Federal rules restrict any use of the information to criminally investigate or prosecute any alcohol or drug abuse patient.[facility] Care Teams (unrecognized sec tion and content) Care Team (unrecognized sect ion and content) Care Team Personnel Name: PHYSICIAN, NONE Position: AH Physician Member Role: Primary Care Physician Care Team Related Persons Name: SCARLET DONNELLY Address: Home [address] [place] [phone] [place] Name: SCARLET DONNELLY Address: Home [address], [place] [phone] [place] Name: SCARLET DONNELLY Address: Home [address], [place] [id number] [place] Name: AYO DONNELLY Address: Home [address] [place], [place] [id number] [place] Name: FÉLIX DONNELLY Address: Home [address], [place] [phone] [place] Name: FÉLIX DONNELLY Address: Home [address], [place] [id number] Name: RYANN DONNELLY FOR RECORDS PERTAINING TO PATIENTS WHO ARE OR HAVE BEEN ENROLLED IN A CHEMICAL DEPENDENCY/SUBSTANCEABUSE PROGRAM, SOME INFORMATION MAY BE OMITTED. This clinical summary was aggregated from multiple sources. Caution should be exercised in using it in the provision of clinical care. This summary normalizes information from multiple sources, and as a consequence, information in this document may materially change the coding, format and clinical context of patient data. In addition, data may be omitted in some cases. CLINICAL DECISIONS SHOULD BE BASED ON THE PRIMARY CLINICAL RECORDS. [facility]. provides no warranty or guarantee of the accuracy or completeness of information in this document.
[2023-09-21 22:32] VITALS: BP 129/77; PULSE 100; RESP 16; TEMP 37.9; O2SAT 98
[2023-09-21] MEDS: Ibuprofen 200 MG Tablet 400 MG PO (23:12)
== END 2023-09-21 23:43 | disposition home or self-care (01) ==
PROVIDERS: Emergency Provider Emergency Medicine; Visit Provider Emergency Medicine
DX: U07.1 COVID-19 (principal); R00.0 Tachycardia, unspecified; J06.9 Acute upper respiratory infection, unspecified; R50.9 Fever, unspecified
CPT/HCPCS: 87631; 99285